=== PATIENT | male | born 1990 | race Caucasian/White ===

== ENCOUNTER 2016-05-02 14:51 | Emergency (ER) ==
--- NOTE | 2016-05-02 17:06 | PROVIDER DOCUMENTATION ---
HPI-Respiratory General - General Chief Complaint: Cold Symptoms Stated Complaint: FEVER/CONGESTION/COUGH Time Seen by Provider: 05/02/16 15:34 Source: patient Allergies/Adverse Reactions: Patient Allergies Allergy/AdvReac Type Severity Reaction Status Date / Time hydrocodone Allergy DIZZINESS Verified 05/12/14 21:01 morphine Allergy SHORTNESS Verified 05/12/14 21:01 OF BREATH oxycodone HCl * AdvReac Intermediate VOMITING Verified 05/12/14 19:40 [From Percocet] erythromycin base AdvReac HIVES Verified 05/05/15 23:32 Home Medications: Citalopram [Celexa] 40 mg PO QAM 05/05/15 - History of Present Illness-Resp Nature of Presenting Problem: 2 days ago started with sinus and lung congestion, cought of clear phlegm, wants a work excuse for today.No actual fever but body aches Review of Systems - Adult - REVIEW OF SYSTEMS - ADULT Constitutional: denies: chills, fever Eyes: denies: dry eyes, blurred vision, redness Ears, Nose, Mouth & Throat: denies: ear discharge, ear pain, sinus problem, nose pain, throat pain Cardiovascular: denies: chest pain, heart murmur, syncope Respiratory: denies: chronic cough, pleurisy, shortness of breath Gastrointestinal: denies: constipation, diarrhea, nausea, vomiting Genitourinary: denies: dysuria, frequent UTI's, urinary retention Musculoskeletal: denies: bone pain, back pain, joint pain, neck pain Integumentary: denies: hives, mole changes, skin thickening Neurological: denies: dizziness/vertigo, numbness, syncope Psychiatric: reports: anti-depressant use Endocrine: denies: goiter, cold intolerance, heat intolerance Hematologic/Lymphatic: denies: low blood count, lymphedema Allergic/Immunologic: denies: eczema, frequent infections, hives Past History - Adult - PAST MEDICAL HISTORY-ADULT Review of Records: reports: Nursing Assessment Review, Medications Reviewed Major Childhood Illnesses: reports: denies history Musculoskeletal: reports: chronic pain Psychiatric: reports: anxiety, depression - PRIOR SURGERIES/PROCEDURES Surgical/Procedure History: reports: other (vasectomy) - IMMUNIZATION STATUS Childhood Immunizations: See Nurse Assessment Flu Vaccine: See Nurse Assessment - FAMILY HISTORY Family History: reviewed, not pertinent Physical Exam-General - PHYSICAL EXAM-ADULT Initial Vital Signs Reviewed: Yes - CONSTITUTIONAL General Appearance: appears well, alert, no apparent distress - EYES Eyes: PERRL/EOMI, pink conjunctivae - HEAD, EARS, NOSE, MOUTH & THROAT HENMT: normocephalic/atraumatic, moist mucous membranes, normal ENT inspection, TMs normal - NECK Neck: non-tender, full range of motion, supple - RESPIRATORY Respiratory: chest non-tender, lungs clear, normal breath sounds, no pleuratic chest pain, no respiratory distress, no accessory muscle use - CARDIOVASCULAR Cardiovascular: normal peripheral pulses, regular rate, rhythm, no edema, no gallop, no JVD, no murmur - GASTROINTESTINAL (ABDOMEN) Abdominal Exam: normal bowel sounds, non tender, soft - LYMPHATIC Lymphatic: no adenopathy - MUSCULOSKELETAL Back Exam: normal inspection, no CVA tenderness, no vertebral tenderness Extremity: normal range of motion, non-tender, normal gait - SKIN Integumentary: normal color, normal turgor, warm/dry - NEUROLOGIC Neurologic: carbon accountant II-XII nml as tested, grossly normal, no motor/sensory deficits - PSYCHIATRIC Psych/Mental Status: normal mood/affect, normal thought content, normal thought process, oriented x 3 Progress - PLAN OF CARE/RESULTS Progress/Plan/Lab Results: Orders Category Date Time Status Flu Swab [INFLUENZA SCREEN A/B] Stat Lab 05/02/16 15:00 Completed Vital Signs Temp Pulse Resp BP Pulse Ox 05/02/16 14:55 97.8 F 88 18 137/87 100 hydrocodone Allergy (Verified 05/12/14 21:01) DIZZINESS morphine Allergy (Verified 05/12/14 21:01) SHORTNESS OF BREATH oxycodone HCl * [From Percocet] Adverse Reaction (Intermediate, Verified 19:40) VOMITING erythromycin base Adverse Reaction (Verified 05/05/15 23:32) HIVES Citalopram [Celexa] 40 mg PO QAM 05/05/15 Departure - Departure Time of Disposition Order: 17:05 DIAGNOSIS: Acute viral syndrome Disposition: HOME 01 Certified Medical Emergency: Emergent Condition: Stable Additional Instructions: ED Follow Up Instructions: You have been treated by a care provider in the Emergency Department. These instructions are being provided to you so you can have an understanding of how to care for yourself upon discharge. Upon discharge from the Emergency Department, you are responsible for making arrangements for follow-up care by a physician of your choice. Take all prescribed medications as directed. Return to the Emergency Department immediately for any new or worsening symptoms. You may call the Physician Referral phone number at [phone] to obtain a list of Physicians who are taking new patients. Prescriptions: Albuterol Sulfate [Albuterol Sulfate Hfa] 8.5 gm IH Q4-6H PRN PRN #1 [id number] PRN Reason: wheezing, short of breath Loratadine [Claritin] 10 mg PO QHS #30 tablet Benzonatate [Tessalon Perle] 100 mg PO HS #20 capsule Referrals: None,PCP [Primary Care Provider] - Forms: Return to School/Parent Work Instructions: Viral Infections, [id number]
[2016-05-02 17:10] VITALS: BP 133/71
== END 2016-05-02 17:15 | disposition home or self-care (01) ==
LOC: ED 14:51
DX: B34.9 Viral infection, unspecified (principal); R09.81 Nasal congestion; M79.1 Myalgia; G89.29 Other chronic pain; F32.9 Major depressive disorder, single episode, unspecified; F41.9 Anxiety disorder, unspecified; Z79.899 Other long term (current) drug therapy
CPT/HCPCS: 87804; 99283